=== PATIENT | female | born 1980 | race Caucasian/White ===

== ENCOUNTER → 2020-11-26 11:01 | Outpatient (CLI) | payer OTHER, SELFPAY ==
--- NOTE | ~2020-11-26 | XR_ITS ---
EXAMINATION: XR lumbar spine 2-3V DATE: 11/26/2020 11:55 INDICATION: Low back pain TECHNIQUE: Anteroposterior and lateral views of the lumbar spine, and cone-down lateral view of the l umbosacral junction were obtained. COMPARISON: None. FINDINGS: Lumbar dextrocurvature is noted. The vertebral body heights and alignment are maintained. T here is no fracture. There is mild loss of intervertebral disc space height at multiple levels in the lumbar spine. Small degenerative osteophytes project from the anterior endplates of multiple vertebr al bodies. IMPRESSION: 1. Mild lumbar spondylosis without acute findings. Reviewed, dictated and finalized at location A.
--- NOTE | ~2020-11-26 | XR_ITS ---
EXAMINATION:XR_CERV2-3V_CR DATE: 11/26/2020 11:55 INDICATION: Neck pain TECHNIQUE: AP, lateral, lateral swimmers and odontoid views of the cervical spine are provided. COMPARISON: None FINDINGS: There is 1 mm of anterolisthesis of C4 on C5. There is reversal of the normal cervical lord osis. The odontoid is intact. No fracture is identified. The vertebral body heights are maintained. T here is moderate loss of intervertebral disc space height at C5-6. There is mild multilevel facet and uncovertebral joint osteoarthritis. Prevertebral soft tissues are normal. IMPRESSION: 1. Mild cervical spondylosis without acute findings. Reviewed, dictated and finalized at location A.
== END ==
DX: M54.2 Cervicalgia (principal); M54.5 Low back pain; M47.816 Spondylosis without myelopathy or radiculopathy, lumbar region; M47.812 Spondylosis without myelopathy or radiculopathy, cervical region
CPT/HCPCS: 72040; 72100

== ENCOUNTER → 2021-12-21 12:40 | Outpatient (CLI) | payer OTHER, SELFPAY ==
--- NOTE | ~2021-12-21 | XR_ITS ---
EXAMINATION:XR_CERV2-3V_CR DATE: 12/21/2021 13:15 INDICATION: Neck pain TECHNIQUE: AP, lateral, lateral swimmers and odontoid views of the cervical spine are provided. COMPARISON: 11/26/2020 FINDINGS: There is 1 mm of stable anterolisthesis of C4 on C5. There is straightening of the cervical spine which can be positional or due to muscular spasm. There is unchanged moderate loss of interver tebral disc space height at C5-6. The odontoid is intact. No fracture is identified. The vertebral everett dy heights are maintained. There is mild facet and uncovertebral joint osteoarthritis at multiple lev els in the cervical spine. Prevertebral soft tissues are normal. IMPRESSION: 1. Mild cervical spondylosis without acute findings or significant interval change. Reviewed, dictated and finalized at location A. IMPRESSION: 1. Mild cervical spondylosis without acute findings or significant interval vivian e.
== END ==
PROVIDERS: PCP Emergency Medicine
DX: M47.812 Spondylosis without myelopathy or radiculopathy, cervical region (principal)
CPT/HCPCS: 72040

== ENCOUNTER 2025-01-03 11:52 | Outpatient (CLI) | payer OTHER, SELFPAY ==
--- NOTE | ~2025-01-03 | CT_ITS ---
EXAMINATION: CT abdomen pelvis wo con DATE: 01/03/2025 12:19 INDICATION: Right flank pain. TECHNIQUE: Computed tomography (CT) of the abdomen and pelvis was performed without intravenous contrast. Automated exposure control and iterative reconstruction technique were employed. The dose-length product was 510.26 mGy-cm. COMPARISON: None. FINDINGS: The visualized portions of the lung bases demonstrate mild atelectasis. No pleural effusion. The heart size is normal. No pericardial effusion. There is a 13 mm mass in right hepatic lobe. Calcifications in the spleen are consistent with old granulomatous disease. The gallbladder, pancreas, adrenal glands, and kidneys are normal. There is no urolithiasis. There is diverticulosis of the colon without evidence of diverticulitis. The appendix is not visualized. There are no pathologically enlarged lymph nodes. There is no free intraperitoneal fluid. There is moderate thoracic spondylosis and mild lumbar spondylosis. IMPRESSION: 1. 13 mm liver mass, which may be benign or less likely malignant. Abdomen MRI without and with contrast is recommended. Reviewed, dictated and finalized at location E.
--- OUTSIDE RECORDS SUMMARY | 2025-01-03 11:57 | XMS_ITS | Patient Health Record ---
Author Organization Corporate Office Address [address] [place] [address] [address] [place] [address] Care Team Providers Care [employer] Operator Name Role Phone None, None Primary Care Provider Saranay Aguiar MD, Chuck Unavailable [phone] Buzz Eugene Unavailable Unavailable Reason For Referral No Information Medications Medication SIG (Take, Route, Frequency, Duration) Notes Start Date End Date Status Excedrin Migraine 250-250-65 MG 2 tablets as needed Orally every 6 hrs (takes Occasionally) Active Social History Tobacco Use: Social History Observation Description Date Details (start date - stop date) Current Smoker NA - NA Smoking Question Answer Notes Are you a: Current Smoker Problems Problem Type SNOMED Code ICD Code Onset Dates Problem Status W/U Status Risk Notes Problem Tobacco abuse (9528372134) Tobacco abuse (Z72.0) Active confirmed Problem Pain in left leg (142553239) Left leg pain (M79.605) Active confirmed Problem History of epilepsy (867520596) History of seizures (Z87.898) Active confirmed Problem History of craniotomy (049609333) H/O craniotomy (Z98.890) Active confirmed Plan Of Treatment No Information Insurance Providers Payer Name Payer Address Payer Phone Subscriber Number Group Number Insured Name Patient Relationship to Insured Coverage Start Date Coverage End Date [facility] [employer] [address] [address] [place] [address] [id number] Isabelle Nelson Self - patient is the insured Medical (General) History Medical History History ICD Code Headaches since High school Left Leg Numbness 08/10/16 Migraines since age 20 Neuropathy Seizures since 17 Months old, next seizu re age 11 y/o Surgical History Surgery Date(Month/Year) B/L Carpal Tunnel surgery 2013 Hysterectomy 2004 Appendectomy 2003 Right Temporal Lobectomy/ partial defect 1998 Hospitalization History Reason Date(Month/Year) None in the last six months. 11/02/16
== END 2025-01-03 11:53 | disposition home or self-care (01) ==
PROVIDERS: PCP Internal Medicine; Visit Provider Physician Assistant
DX: R16.0 Hepatomegaly, not elsewhere classified (principal)
CPT/HCPCS: 74176